=== PATIENT | female | born 1995 | race Caucasian/White ===

== ENCOUNTER 2019-05-27 19:13 | Inpatient (IN) | payer OTHER ==
[~2019-05-27 19:13] MED LIST: Bupivacaine 0.25% HCL 30 ML VIAL ONE
[2019-05-27 19:55] VITALS: BMI 32.8
[2019-05-27] MEDS: Lactated Ringer's 1,000 ML IV SCH (20:15)
[2019-05-27] MEDS ORDERED: Ondansetron PF 4 MG/2 ML Vial IVP PRN (20:24)
[2019-05-27] MEDS ORDERED: Lidocaine 1% (PF) 30 ML VIAL SC PRN (20:24)
[2019-05-27] MEDS ORDERED: hydrALAZINE 20 MG/ML VIAL SLOW IVP PRN (20:24)
[2019-05-27] MEDS ORDERED: Promethazine HCl 25 MG/ML VIAL IM PRN (20:24)
[2019-05-27] MEDS ORDERED: Misoprostol 200 MCG TAB PR PRN (20:29)
[2019-05-27] MEDS ORDERED: Diphenoxylate HCl/Atropine Tablet PO PRN (20:29)
[2019-05-27] MEDS ORDERED: HYDROcodone/Acetaminophen 5/325 mg Tablet PO PRN (20:29)
[2019-05-27] MEDS ORDERED: Carboprost 250 MCG/ML AMP IM PRN (20:29)
[2019-05-27] MEDS ORDERED: Ibuprofen 800 MG TAB PO PRN (20:29)
[2019-05-27] MEDS ORDERED: Methylergonovine 0.2 MG/ML VIAL IM PRN (20:29)
[2019-05-27] MEDS ORDERED: NS w/ Oxytocin 10 units 500 ML IV SCH ×2 (20:30)
[2019-05-27] MEDS: Misoprostol 100 MCG TAB PO SCH (20:55)
[2019-05-27 20:57] LABS: Mean Corpuscular HGB CONC 34.6 g/dL (32.0-36.0); Mean Corpuscular Hemoglobin 32.1 pg (27.0-31.0); Mean Corpuscular Volume 92.8 fL (78.0-98.0); Mean Platelet Volume 7.1 fL (7.4-10.4); Platelet Count 447 thou/uL (130-400); RBC Distribution Width 12.1 % (11.5-14.5); Red Blood Cell (RBC) Count 3.44 mill/uL (4.20-5.40)
[2019-05-27 21:36] LABS: HBSAg Index 0.17 S/CO (0-0.99); Hep B Surf Ag Non-Reactive S/CO (NonReactive)
[2019-05-27 21:51] LABS: Syphilis Antibody Index 2.47 S/CO (<1.00 Non-Reactive)
[2019-05-27 22:38] LABS: Syphilis Antibody INDETERMINATE (Nonreactive)
[2019-05-28] MEDS: Butorphanol Tartrate 1 MG/ML VIAL SLOW IVP PRN ×4 (01:30→09:48)
[2019-05-28] MEDS: Misoprostol 100 MCG TAB PO SCH ×2 (03:35→07:56)
[2019-05-28] MEDS: Lactated Ringer's 1,000 ML IV SCH ×3 (03:40→10:55)
[2019-05-28] MEDS ORDERED: Fentanyl 4 mcg/Bup 0.1% Cadd 100 ML ONE (09:36)
[2019-05-28] MEDS ORDERED: Promethazine HCl 25 MG/ML VIAL IM PRN ×2 (10:23→16:27)
[2019-05-28] MEDS ORDERED: Lactated Ringer's 500 ML IV PRN (10:23)
[2019-05-28] MEDS ORDERED: Naloxone HCl 0.4 mg/ml Vial IVP PRN ×2 (10:23)
[2019-05-28] MEDS ORDERED: Ondansetron PF 4 MG/2 ML Vial IVP PRN ×2 (10:23→16:27)
[2019-05-28] MEDS ORDERED: diphenhydrAMINE 50 MG/ML VIAL IVP PRN (10:23)
[2019-05-28] MEDS ORDERED: Acetaminophen 325 MG TAB PO PRN (10:23)
[2019-05-28] MEDS ORDERED: EPHEDRINE 25 MG/5 ML SYRINGE SLOW IVP PRN (10:23)
[2019-05-28] MEDS ORDERED: Communication Order-Pharmacy FS SCH (10:30)
[2019-05-28] MEDS ORDERED: Fentanyl 4 mcg/Bupivacaine 0.1% Cassette 100 ML EPIDURAL SCH (10:30)
[2019-05-28] MEDS: NS / Oxytocin 40 units/1000ml 1,000 ML IV PRN ×2 (14:32→16:25)
[2019-05-28] MEDS ORDERED: NS / Oxytocin 40 units/1000ml 1,000 ML IV SCH (16:27)
[2019-05-28] MEDS ORDERED: Bisacodyl 10 MG SUPP PR PRN (16:27)
[2019-05-28] MEDS ORDERED: Milk Of Magnesia 30 ML UDCUP PO PRN (16:27)
[2019-05-28] MEDS ORDERED: Lanolin Ointment 7 GM TUBE TOP PRN (16:27)
[2019-05-28] MEDS ORDERED: Benzocaine-Menthol 82.5 ML CAN TOP PRN (16:27)
[2019-05-28] MEDS ORDERED: hydrALAZINE 20 MG/ML VIAL SLOW IVP PRN (16:27)
[2019-05-28] MEDS ORDERED: Adacel (T-DAP) 0.5 ML SYRINGE IM ONE (16:27)
[2019-05-28] MEDS: Ibuprofen 800 MG TAB PO SCH (17:08)
[2019-05-28] MEDS: Ferrous Sulfate 325 MG TAB PO SCH (18:09)
[2019-05-28] MEDS: HYDROcodone/Acetaminophen 5/325 mg Tablet PO PRN ×2 (18:11→22:24)
[2019-05-28] MEDS: Docusate Calcium (SURFAK) 240 MG CAP PO SCH (22:26)
[2019-05-29] MEDS: Ibuprofen 800 MG TAB PO SCH ×3 (01:06→17:40)
[2019-05-29] MEDS: HYDROcodone/Acetaminophen 5/325 mg Tablet PO PRN ×2 (03:28→13:37)
[2019-05-29 06:54] LABS: Hemoglobin 10.1 g/dL (12.0-16.0); Mean Corpuscular Hemoglobin 32.6 pg (27.0-31.0); Mean Corpuscular Volume 93.1 fL (78.0-98.0); Mean Platelet Volume 6.8 fL (7.4-10.4); Platelet Count 327 thou/uL (130-400); RBC Distribution Width 12.1 % (11.5-14.5); Red Blood Cell (RBC) Count 3.09 mill/uL (4.20-5.40)
[2019-05-29] MEDS ORDERED: Prenatal Vitamin 1 TAB PO SCH (09:00)
[2019-05-29] MEDS: Ferrous Sulfate 325 MG TAB PO SCH (09:09)
[2019-05-29] MEDS: Docusate Calcium (SURFAK) 240 MG CAP PO SCH (09:09)
[2019-05-29 11:51] VITALS: BP 117/60; TEMP 98.1
== END 2019-05-29 17:59 | disposition home or self-care (01) | DRG 807 ==
LOC: L&D 19:13 → 3SW 05-28 17:57
PROVIDERS: ADMIT Family Medicine; ATTEND Family Medicine
PROC: 10E0XZZ Delivery of Products of Conception, External Approach (ICD-10-PCS; principal; 2019-05-28)
PROC: 10907ZC Drainage of Amniotic Fluid, Therapeutic from Products of Conception, Via Natural or Artificial Opening (ICD-10-PCS; 2019-05-28)
PROC: 3E0P7VZ Introduction of Hormone into Female Reproductive, Via Natural or Artificial Opening (ICD-10-PCS; 2019-05-28)
DX: O80 Encounter for full-term uncomplicated delivery (principal); Z37.0 Single live birth; Z3A.39 39 weeks gestation of pregnancy
CPT/HCPCS: 36415; 51702; 85027; 86593; 86780; 86850; 86870; 86900; 86901; 86905; 86922; 87340; J0595; J2590; S0020